=== PATIENT | male | born 1940 | race Caucasian/White ===

== ENCOUNTER 2017-01-13 01:17 | Inpatient (IN) ==
[~2017-01-13 01:17] MED LIST: Naloxone 0.4 MG/ML INJ IVP PRN
[2017-01-13] MEDS ORDERED: Ondansetron 4 MG/2 ML VIAL IVP PRN (02:16)
[2017-01-13] MEDS ORDERED: Nitroglycerin 0.4 MG TAB.SUBL SL PRN (02:16)
--- NOTE | 2017-01-13 02:31 | Internal Med History&Physical ---
Date of Encounter: 01/13/17 Time of Encounter: 01:00 Assessment and Plan (1) Hyperlipemia Current visit: Yes Status: Chronic Will increase to lipitor 80, check AM lipids. Qualifiers: Hyperlipidemia type: unspecified Qualified Code(s): E78.5 - Hyperlipidemia , unspecified Code(s): E78.5 - Hyperlipidemia, unspecified SNOMED Code(s): 14383680 (2) Acute kidney injury superimposed on CKD Current visit: Yes Status: Acute Baseline 1.3 Crea, will continue to monitor. Check UA. (3) Hypertension Current visit: Yes Status: Chronic Continue home BP meds Qualifiers: Hypertension type: essential hypertension Qualified Code(s): I10 - Essential (primary) hypertension (4) Elevated hemoglobin A1c Current visit: Yes Status: Acute will monitor FS, if needed may need Insulin coverage (5) NSTEMI (non-ST elevated myocardial infarction) Current visit: No Status: Acute Admit Telemetry Heparin gtt, per protocol, monitor APTT Aspirin, plavix, lipitor Trend trop Check ECHO Cardiology consult in AM. Internal Medicine - H&P: HPI Chief complaint: Chest pains Admitted From: Emergency Dept (At [place]) Plans for Post Hospital Care: Home History of present illness: Mr. Cash is a 76 year old male with past medical history of CAD ( no interventions), Hyperlipidemia, HTN, Renal calculi, ? CVA who was transferred from [place] ER for possible NSTEMI. 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 He then went home and pain continued and worsened at around 6PM. At that time pain was as much as 8/10, left side of his chest, radiated to left arm but no nausea, no vomiting. In the squad he was given Nitro SL which alleviated his pains. He was then taken to the ER at [place] where he was noted to have a trop 0.2, EKG was normal. He was started on a Heparin gtt and transferred here. At this time he feels fine, not having any chest pains, dyspnea or palpitations. He is High Risk given his age, history and possible NSTEMI. Expected LOS > 3 nights. Past Med Surg Social Fam HX - Past Medical History Medical history: CVA, hyperlipidemia, hypertension, myocardial infarction, renal disease, other Psychiatric history: no psych history - Past Surgical History Surgical History: appendectomy, knee replacement, other - Social History Smoking Status: Never smoker Smokeless Tobacco Status: No Alcohol use: none Drug use: none - Family History Father Hx Family Cardiac Disorders: No Hx Family Respiratory Disorders: No Hx Family Cancer: No Hx Family GI Disorders: No Hx Family Genitourinary Disorders: No Hx Family Endocrine Disorder: Yes (DM) Hx Family Musculoskeletal Disorders: No Hx Family Neuromuscular Disorders: No Hx Family Neurologic Disorders: Yes (Alzheimers) Hx Family HEENT Disorders: No Hx Family Autoimmune Disorders: No Hx Family Reproductive Disorders: No Hx Family Psychosocial Disorders: No Hx Family Medical Disorders: No Internal Medicine - H&P: Meds Aspirin Enteric Coated [Aspirin EC] 81 mg PO DAILY 08/14/15 [History] Clopidogrel [Plavix] 75 mg PO DAILY 08/14/15 [History] Losartan Potassium [Cozaar] 100 mg PO DAILY 08/14/15 [History] Metoprolol XL (24 HR) Succ [Toprol Xl] 25 mg PO DAILY 08/14/15 [History] Simvastatin [Zocor] 10 mg PO DAILY 08/14/15 [History] Cyanocobalamin (Vitamin B-12) [Vitamin B12] 1,000 mcg PO DAILY 08/18/15 [History ] 3 Allergy/AdvReac Type Severity Reaction Status Date / Time No Known Allergies Allergy Verified 01/12/17 20:57 All Systems PM: A 10-system review of systems was performed and is negative for pertinent findings except as documented above in the HPI. - Constitutional Vitals: Temp Pulse Resp BP Pulse Ox 97.6 F 51 12 167/99 94 01/13/17 00:05 01/13/17 00:05 01/13/17 00:05 01/13/17 00:05 01/13/17 00:05 General appearance: Present: A&O X 3, pleasant, no acute distress - Head Head exam: Present: atraumatic, normal inspection, normocephalic - Eye Eye exam: Present: EOMI, PERRL Pupils: Present: PERRL - ENT ENT exam: Present: mucous membranes moist, normal external ear exam, normal oropharynx - Neck Neck exam general surgery: Present: full ROM - Respiratory Respiratory exam: Present: CTAB - Cardiovascular Cardiovascular exam: Present: RRR, +S1, +S2 - GI/Abdominal GI/Abdominal exam: Present: normal bowel sounds, soft, no peritoneal signs - exam: Present: normal inspection - Extremities Exam Extremities exam: Present: full ROM, warm - Back Exam Back exam: Present: normal inspection - Neurological Exam Neurological exam: Present: alert, oriented X3 - Psychiatric Psychiatric exam: Present: normal affect, normal mood - Skin Skin exam: Present: normal color, warm Internal Med - H&P Results - Labs Labs: From [facility] Reviewed Trop 0.2 Crea 1.45 A1C 6.3 CBC: WNL - EKG Data -: EKG Interpreted by Myself EKG shows normal: sinus rhythm Rate: normal - EKG Data Prior EKG available for review: no - Diagnostic Studies Chest x-ray Status: image reviewed by me Additional comments: No acute process
[2017-01-13] MEDS: Heparin 25,000 UNIT/500 ML D5W 25,000 UNIT/500 ML MLS IVC SCH (02:57)
[2017-01-13 03:49] LABS: INR 1.1; Prothrombin Time 11.5 Seconds (9.4-12.1)
[2017-01-13 03:51] LABS: Activated Partial Thrombo Time 92.2 Seconds (26.0-36.0)
[2017-01-13 03:52] LABS: Basophils % 0.5 %; Eosinophils # 0.2 K/mcL (0.0-0.6); Eosinophils % 3.2 %; Hematocrit 43.1 % (37.5-50.1); Hemoglobin 13.9 g/dL (12.9-16.9); Immature Granulocytes % 0.3 % (0-4); Lymphocytes # 1.9 K/mcL (0.6-4.6); Lymphocytes % 33.2 %; Mean Corpuscular HGB Conc 32.3 g/dL (31.6-35.5); Mean Corpuscular Hemoglobin 28.4 pg (28.0-33.3); Mean Platelet Volume 10.1 fL (9.4-12.4); Monocytes # 0.5 K/mcL (0.0-1.3); Neutrophils # 3.2 K/mcL (1.6-8.9); Platelet Count 209 K/mcL (140-400); Red Cell Distribution Width 13.5 % (11.5-14.5); Segmented Neutrophils % 54.8 %
[2017-01-13 03:56] LABS: Hemoglobin A1C 6.1 %
[2017-01-13 04:44] LABS: Chol/HDL Ratio 4.6 (0-4.9)
[2017-01-13 04:45] LABS: Alanine Aminotransferase 12 Units/L (0-55); Albumin 3.6 g/dL (3.5-5.0); Albumin/Globulin Ratio 1.1 (1.1-2.2); Alkaline Phosphatase 72 Units/L (38-126); Aspartate Amino Transferase 16 Units/L (5-34); BUN/Creatinine Ratio 18 (6-26); Bilirubin,Total 0.5 mg/dL (0.2-1.2); Blood Urea Nitrogen 23 mg/dL (8-26); Calcium 9.1 mg/dL (8.6-10.8); Carbon Dioxide 23 mEq/L (19-29); Chloride 108 mEq/L (98-109); Globulin 3.2 g/dL (2.4-3.5); Glucose 109 mg/dL (70-99); Magnesium 2.2 mg/dL (1.6-2.6); Osmolality,Calculated 294 (280-300); Phosphorous 3.4 mg/dL (2.3-4.7); Potassium 4.2 mEq/L (3.5-4.5); Sodium 140 mEq/L (136-145); Total Protein 6.8 g/dL (6.0-8.3); eGFR For African Americans > 60 (> 60); eGFR For Non-African Americans 53 (> 60)
[2017-01-13 05:42] LABS: Thyroid Stimulating Hormone 1.018 mcIU/mL (0.350-4.840)
[2017-01-13] MEDS: Metoprolol XL (24 HR) Succ 25 MG TAB.ER.24H PO SCH (08:08)
[2017-01-13] MEDS: Cyanocobalamin (B-12) 1,000 MCG TABLET PO SCH (08:08)
[2017-01-13] MEDS: Aspirin Enteric Coated 81 MG Tablet PO SCH (08:08)
[2017-01-13] MEDS ORDERED: NON-FORMULARY MEDICATION 1 EACH EACH (Simvastatin [Zocor] 10 MG) PO SCH (09:00)
--- NOTE | 2017-01-13 10:35 | Cardiology Consult Note ---
<Waylon Blake - Last Filed: 01/13/17 11:02> Date of Encounter: 01/13/17 Time of Encounter: 10:30 Assessment and Plan (1) NSTEMI (non-ST elevated myocardial infarction) Current Visit: No Status: Acute Troponin 0.20, 0.25. EKG with no acute changes. Typical chest pain. Remote history of non-obstructive CAD on LHC. [facility] recommended for further eval. Check TTE tonight. TTE 06/18/13- EF 55%. Moderate DD. No significant valvular disease. Last stress test 2008 was negative. LHC R/B/A reviewed. Noted to have mildly elevated creatinine at baseline. IV fluid to reduce risk of DARIO. Discussed with patient and he would like to proceed. Continue asa, statin, and BB. (2) Hypertension Current Visit: Yes Status: Chronic B/p is acceptable. Qualifiers: Hypertension type: essential hypertension Qualified Code(s): I10 - Essential (primary) hypertension Discussion w patient/family: The assessment and plan as outlined above was discussed with the patient and/or family members who expressed understanding and agreement. All questions were answered. Thank you for involving us in the care of your patient. Please call with any questions. History of Present Illness Consult date: 01/13/17 Requesting physician: Jan Patterson Consult reason: NSTEMI Chief complaint: Chest pain History of present illness: Mr. Cash is a 76 year old male with a history of non-obstructive CAD, HTN, and CKD who presents with intermittent left sided chest pain. The discomfort started last saturday when he was shoveling tar to fill a potole. He reports it was a dull pressure and non-radiating. the pain improved with rest. Yesterday he was shoveling dirt when he developed recurrent left sided pressure that radiated to his arm. His pain improved with rest. That evening after dinner he had recurrent chest pain. He decided to go to the ER in [place]. Chest pain resolved with one NTG. He denies associated symptoms. Denies SOB, Palpitations, or diaphoresis. Denies nausea. No recent cardiac work-up. Underwent LHC remotely and patient reports 40% blockage at that time. Past Med Surg Social Fam HX - Past Medical History Medical history: hyperlipidemia, hypertension, myocardial infarction, renal disease, other Psychiatric history: no psych history - Past Surgical History Surgical History: appendectomy, knee replacement, other - Social History Smoking Status: Never smoker Smokeless Tobacco Status: No Alcohol use: none Drug use: none - Family History Father Hx Family Cardiac Disorders: No Hx Family Respiratory Disorders: No Hx Family Cancer: No Hx Family GI Disorders: No Hx Family Genitourinary Disorders: No Hx Family Endocrine Disorder: Yes (DM) Hx Family Musculoskeletal Disorders: No Hx Family Neuromuscular Disorders: No Hx Family Neurologic Disorders: Yes (Alzheimers) Hx Family HEENT Disorders: No Hx Family Autoimmune Disorders: No Hx Family Reproductive Disorders: No Hx Family Psychosocial Disorders: No Hx Family Medical Disorders: No Medications and Allergies Aspirin Enteric Coated [Aspirin EC] 81 mg PO DAILY 08/14/15 [History] Clopidogrel [Plavix] 75 mg PO DAILY 08/14/15 [History] Losartan Potassium [Cozaar] 100 mg PO DAILY 08/14/15 [History] Metoprolol XL (24 HR) Succ [Toprol Xl] 25 mg PO DAILY 08/14/15 [History] Simvastatin [Zocor] 10 mg PO DAILY 08/14/15 [History] Cyanocobalamin (Vitamin B-12) [Vitamin B12] 1,000 mcg PO DAILY 08/18/15 [History ] Allopurinol [Zyloprim 300 MG] 300 mg PO DAILY 01/13/17 [History] Potassium Citrate [Urocit-K] 10 meq PO BID 01/13/17 [History] 3 Allergy/AdvReac Type Severity Reaction Status Date / Time No Known Allergies Allergy Verified 01/12/17 20:57 All Systems Review: A 10-system review of systems was performed and is negative for pertinent findings except as documented above in the HPI. Physical Examination Vital Signs, Last 4 Hours Temp Pulse Resp BP Pulse Ox 01/13/17 07:27 97.4 F L 63 16 129/80 99 General: Conversant, No Apparent Distress HEENT: Atraumatic, Normocephaly, Mucus Membranes Moist Neck: No JVD, Normal carotid pulses Cardiac: Reg Rate and Rhythm, Normal S1 and S2, No Murmur Lungs: Normal Breath Sounds, No Wheeze, Rales, Rhonchi Neuro: Alert and responsive, No focal deficits noted Abdomen: Soft, Non-Tender Skin: No rashes noted on visualized skin Musculoskeletal: No Chest Wall Tenderness Extremities: No Clubbing, No Cyanosis, No Edema, Normal Pulses Results 01/13/17 03:28 01/13/17 03:28 Lab Results 01/13/17 01/13/17 01/13/17 03:28 03:28 03:28 WBC 5.9 Hgb 13.9 Hct 43.1 Plt Count 209 INR 1.1 APTT 92.2 H D Sodium Potassium Chloride Carbon Dioxide BUN Creatinine Glucose Calcium Magnesium Total Bilirubin AST ALT Alkaline Phosphatase Troponin I 0.25 H* TSH 01/13/17 01/13/17 01/13/17 03:28 03:28 09:34 WBC Hgb Hct Plt Count INR APTT 56.4 H Sodium 140 Potassium 4.2 Chloride 108 Carbon Dioxide 23 BUN 23 Creatinine 1.31 H Glucose 109 H Calcium 9.1 Magnesium 2.2 Total Bilirubin 0.5 AST 16 ALT 12 Alkaline Phosphatase 72 Troponin I TSH 1.018 01/13/17 09:34 WBC Hgb Hct Plt Count INR APTT Sodium Potassium Chloride Carbon Dioxide BUN Creatinine Glucose Calcium Magnesium Total Bilirubin AST ALT Alkaline Phosphatase Troponin I 0.20 H* TSH - Imaging and Cardiology Echo: report reviewed Consult Discharge Plan - Plan Referrals: Laith Fulton MD [Primary Care Provider] - <Sonya Corcoran - Last Filed: 01/13/17 15:28> Date of Encounter: 01/13/17 - Attending Attestation I have personally performed a face to face evaluation on this patient. I have reviewed and agree with the care plan. History and Exam by me shows: 76-year-old male presents to the [facility] from [place] with chest pain. Patient was found having elevated troponin 0.0 with a presentation of typical angina. Patient's EKG shows nonspecific changes last echocardiogram 2013 shows ejection fraction of 55%. Risks benefits and alternatives were discussed with the patient and he agrees to proceed with a left heart catheter. Currently chest pain-free on heparin with a peak troponin of 0.24 Assessment and Plan Discussion w patient/family: The assessment and plan as outlined above was discussed with the patient and/or family members who expressed understanding and agreement. All questions were answered. Thank you for involving us in the care of your patient. Please call with any questions. History of Present Illness History of present illness: Mr. Cash is a 76 year old male All Systems Review: A 10-system review of systems was performed and is negative for pertinent findings except as documented above in the HPI. Results 01/13/17 03:28 01/13/17 03:28 Lab Results 01/13/17 01/13/17 01/13/17 03:28 03:28 03:28 WBC 5.9 Hgb 13.9 Hct 43.1 Plt Count 209 INR 1.1 APTT 92.2 H D Sodium Potassium Chloride Carbon Dioxide BUN Creatinine Glucose Calcium Magnesium Total Bilirubin AST ALT Alkaline Phosphatase Troponin I 0.25 H* TSH 01/13/17 01/13/17 01/13/17 03:28 03:28 09:34 WBC Hgb Hct Plt Count INR APTT 56.4 H Sodium 140 Potassium 4.2 Chloride 108 Carbon Dioxide 23 BUN 23 Creatinine 1.31 H Glucose 109 H Calcium 9.1 Magnesium 2.2 Total Bilirubin 0.5 AST 16 ALT 12 Alkaline Phosphatase 72 Troponin I TSH 1.018 01/13/17 09:34 WBC Hgb Hct Plt Count INR APTT Sodium Potassium Chloride Carbon Dioxide BUN Creatinine Glucose Calcium Magnesium Total Bilirubin AST ALT Alkaline Phosphatase Troponin I 0.20 H* TSH
[2017-01-13] MEDS ORDERED: *HR* Heparin 5,000 UNIT/ML VIAL IVP PRN ×2 (17:28)
[2017-01-13 18:12] LABS: Activated Partial Thrombo Time 130.8 Seconds (26.0-36.0)
[2017-01-13 18:21] LABS: Heparin anti-factor XA UFH 0.53 IU/mL (0.30-0.70)
--- NOTE | 2017-01-13 18:46 | Event Note ---
Date of Encounter: 01/13/17 Time of Encounter: 18:46 Pt admitted with acute NSTEMI. Pain free now. On heparin. Plan [facility] tomorrow.
[2017-01-14 01:08] LABS: Hematocrit 41.2 % (37.5-50.1); Hemoglobin 13.4 g/dL (12.9-16.9); Immature Platelets 3.2 % (1.1-6.1); Mean Corpuscular HGB Conc 32.5 g/dL (31.6-35.5); Mean Corpuscular Hemoglobin 28.6 pg (28.0-33.3); Mean Platelet Volume 10.2 fL (9.4-12.4); Red Blood Count 4.68 M/mcL (4.19-5.50); Red Cell Distribution Width 13.6 % (11.5-14.5)
[2017-01-14 01:20] LABS: Calcium 9.2 mg/dL (8.6-10.8); Magnesium 2.1 mg/dL (1.6-2.6); Potassium 4.2 mEq/L (3.5-4.5)
[2017-01-14] MEDS: Heparin 25,000 UNIT/500 ML D5W 25,000 UNIT/500 ML MLS IVC SCH (01:48)
[2017-01-14] MEDS: Aspirin Enteric Coated 81 MG Tablet PO SCH (07:43)
[2017-01-14] MEDS: Cyanocobalamin (B-12) 1,000 MCG TABLET PO SCH (07:44)
[2017-01-14] MEDS: Metoprolol XL (24 HR) Succ 25 MG TAB.ER.24H PO SCH (07:44)
[2017-01-14] MEDS ORDERED: Heparin 1,000 UNITS/500 mL NS 500 ML ONE (09:26)
[2017-01-14] MEDS ORDERED: 0.9 % Sodium Chloride 1,000 ML ONE (09:26)
[2017-01-14] MEDS ORDERED: Nitroglycerin 1,000 MCG/10 ML VIAL IV ONE (09:27)
[2017-01-14] MEDS ORDERED: *HR* Heparin 10,000 UNIT/10 ML VIAL ONE (09:27)
[2017-01-14] MEDS ORDERED: *HR* Midazolam HCl 2 MG/2 ML VIAL ONE (09:38)
--- NOTE | 2017-01-14 09:47 | Pre-Sedation Evaluation ---
Pre-sedation evaluation - Pre-sedation checklist Date of procedure: 01/14/17 Recent Vitals: Last Vital Signs Temp 98.2 F 01/14/17 07:25 Pulse 54 01/14/17 07:25 Resp 17 01/14/17 07:25 BP 129/80 01/14/17 07:25 Pulse Ox 99 01/14/17 07:25 H&P (including ROS) documented in medical record: Yes Previous reaction to sedatives/anesthetics: No Dietary Status: NPO after Midnight Airway Assessment: Patient can open mouth completely, TMJ function normal Dentition: dentures removed Possible difficult airway: No ASA Classification *see protocol: CLASS III-Severe systemic disease Plan of Care: Pt appropriate candidate for procedure/moderate/conscious sedation , Risks/benefits of procedure/sedation discussed w/ patient/family, If not NPO; Risk of intake outweiged by necessity to perform procedure
--- NOTE | 2017-01-14 10:28 | Event Note ---
Date of Encounter: 01/14/17 Time of Encounter: 10:25 - Cardiology Event Note LHC: Normal LV, EF 60% hyperdominate Cx 99% prox LAD to 0% post PCI with 3.0 x 12 Synergy MCKAY.
--- NOTE | 2017-01-14 10:40 | Invasive Diagnostic Lab Proc ---
Name: Fermin Cash Date of Study: 01/14/2017 Date: 1940 Ht: 72.0in Medical Record#: [id number] Age: 76 Wt: 209.44lb Gender: Male BSA: 2.17 Order #: [id number] BMI: 28.37 Physicians Procedure Physician: Shaan Alva DO Referring MD: Referring MD: Staff Name Position Time In Mike Sinhai RT Scrub 09:35 AM Catie Luna RT (R) Monitor 09:36 AM Deepa Tolbert RN Mechanical Test Engineer 09:36 AM Indications Indication Non-Stemi Procedures Performed Procedure L HRT ARTERY/VENTRICLE ANGIO PRQ CARD MCKAY STENT W/ANGIO 1 VSL Pre-Procedure Checklist Informed consent is complete signed and on chart. H&P is on chart. ID band is on and ID verified with patient. Patient NPO for procedure The procedure was described for the patient and questions were answered. Blood Pressure: 174/91 ECG is on chart. Rhythm: Sinus Bradycardia Plan of Care Patient will tolerate the procedure without complications. Adequate level of comfort will be maintained. Hemodynamics will remain stable Patient will recover from procedure without complications. Respiratory function will be maintained. Cardiac rhythm will remain stable. Patient temperature will be maintained. Patient and/or family have verbalized understanding of the procedure. Patient Education Chief Complaint/Reason for Test: Cardiac Cath Developmental Category: Geriatric (65+ years) Developmentally Appropriate for Age: Yes Learning Barriers: None Education Needs: Procedure Education Method: Verbal Information Taught: Cardiac Cath Educational Evaluation: Able to repeat information Intravenous Access Time IV Size Location DC'd Fluid/Drip Rate Units RN 09:35 AM 18g 1 03/21" Patent On Arrival Rt Antecubital Allergies No Known Allergies NKA Vital Signs Time BP (mmHg) HR (bpm) O2 Sat. RR (bpm) LOC 09:37 AM / % 5 = Fully awake and oriented or at pre-proc level 09:37 AM / % 4 = Oriented but drowsy 09:52 AM / % 4 = Oriented but drowsy 10:07 AM / % 5 = Fully awake and oriented or at pre-proc level 09:36 AM 174 / 91 51 100 % 09:41 AM 138 / 85 55 97 % 14 09:46 AM 123 / 80 49 91 % 13 09:51 AM 133 / 82 49 98 % 16 09:56 AM 128 / 81 50 100 % 12 10:01 AM 133 / 88 51 99 % 13 10:06 AM 153 / 86 48 97 % 26 10:11 AM 158 / 84 51 100 % 15 10:16 AM 152 / 87 47 100 % 21 10:22 AM 165 / 102 % Procedural Medications Time Medication Dose Units Method Given By 09:36 AM Oxygen 2 L/min nasal cannula Georgette Martinez RN 09:38 AM Versed 2 mg Intravenous Deepa Tolbert RN 09:44 AM Oxygen 6 L/min nasal cannula Deepa Tolbert RN 09:46 AM Oxygen 10 L/min Oxy Mask Deepa Tolbert RN 09:55 AM Lidocaine 2% 10 ml Subcutaneous Shaan Alva DO 10:05 AM Angiomax 0.75mg/kg bolus: 14 ml Intravenous Deepa Tolbert RN 10:06 AM Angiomax 1.75mg/kg/hr: 33 ml Intravenous Deepa Tolbert RN ASA Classification: CLASS II- Mild systemic disease (i.e. well-controlled diabetes, hypertension, asthma, cigarette smoking) Karla Score Preprocedure Postprocedure Activity 2- Moves 4 extremities sustained head lift Activity 2- Moves 4 extremities sustained head lift Circulation 2- SBP +/= 20 points of pre-anesthetic level Circulation 2- SBP +/= 20 points of pre-anesthetic level Consciousness 2- Awake and alert oriented x 3 Consciousness 2- Awake and alert oriented x 3 O2 Saturation 2- Able to maintain O2 satruation of 92% on room air O2 Saturation 2- Able to maintain O2 satruation of 92% on room air Respiratory 2- Able to deep breathe and cough well Respiratory 2- Able to deep breathe and cough well Total Score 10 Total Score 10 Contrast Agent: Isovue Diagnostic Contrast: 75 ml Total Contrast: 75 ml Fluoro Dose: 869 mGy Procedure Log Time Note Enter By 09:28 AM Case Start 09:28 AM CathStat 09:35 AM Pt arrived to clinical laboratory technician 2 at 09:35 [facility] 09:35 AM Vitals capture started with the following parameters, Patient=Adult, Interval=5 min, Initial Upyepybi=072 mmHg, Deflation Rate=5 mmHg, Cuff placed on Right Arm 09:36 AM Samina Sinha RT Position: Scrub Time in: 09:35 [email or web address] 09:36 AM Catie Luna RT (R) Position: Monitor Time in: 09:36 :36 AM Deepa Tolbert RN Position: Mechanical Test Engineer Time in: :36 ell:36 AM Patient charges- Angio tray pack, Navilyst 3mm J, Pulse Oximetry and ACIST tubing and transducer :36 AM IV Supplies used: J loop Angio Cath. 09:36 AM Case Delayed NO 09:36 AM Hair removed from procedure site in procedure lab using clippers. Bilateral groin prepped with Chloraprep by Mani Rico (R), safety strap applied then patient was draped. Skin intact. :36 AM Physician arrived 09:36 [email or web address] AM HR=51 bpm, PVSO=536/91 mmhg, UtU1=660.0 %, Comment=Sinus Mahamed 09:36 AM Meet and greet completed :36 AM Sign in performed according to hospital policy. :36 AM Procedure start 09:36 :37 AM Time: 09:36 Oxygen on at 2 L/min per nasal cannula by Georgette Martinez RN :37 AM Time: 09:37 Patient comfortable and pain free: Yes :37 AM Time: 09:37LOC: 5 = Fully awake and oriented or at pre-proc level :37 AM Clinical Presentation: Unstable angina 09:39 AM Time: 09:38 Versed 2 mg Intravenous Given by Deepa Tolbert RN 09:41 AM HR=55 bpm, NZEV=910/85 mmhg, SpO2=97.0 %, Resp=14 B/min, Comment=Sinus Mahamed 09:44 AM Time: 09:44 Oxygen on at 6 L/min per nasal cannula by Deepa Tolbert RN gretchen 09:45 AM Pressure channel 2 zeroed. 09:46 AM HR=49 bpm, UOXF=545/80 mmhg, SpO2=91.0 %, Resp=13 B/min, Comment=Sinus Mahamed 09:46 AM Time: 09:46 Oxygen on at 10 L/min per Oxy Mask by Deepa Tolbert RN 09:49 AM Pressure channel 2 zeroed. 09:51 AM HR=49 bpm, EXQY=935/82 mmhg, SpO2=98.0 %, Resp=16 B/min, Comment=Sinus Mahamed 09:51 AM ASA Class CLASS II- Mild systemic disease (i.e. well-controlled diabetes, hypertension, asthma, cigarette smoking) :52 AM Time: 09:37LOC: 4 = Oriented but drowsy dsp:52 AM Time: 09:37 Patient comfortable and pain free: Yes :55 AM Time out performed according to hospital policy :55 AM Time: :55 10 ml Lidocaine 2% to right groin Subcutaneous Given by Shaan Alva DO :56 AM HR=50 bpm, HRNP=939/81 mmhg, YgS1=540.0 %, Resp=12 B/min, Comment=Sinus Mahamed 09:56 AM Micro-Introducer Kit utilized for sheath placement :58 AM Access obtained by percutaneous puncture. 6Fr 10cm Terumo Claridge sheath placed in right Femoral artery. [id number] 09:58 AM 6Fr FR 4 catheter inserted over the wire [facility] :58 AM 0.035 145cm Navilyst 3mmJ wire [id number] :58 AM Catheter selectively placed in left ventricle :59 AM Bolus angiogram of left Ventricle complete: ml/sec for a total of 12 mls :59 AM Recorded Pressure: LV, HR=54, Condition=Condition 1 (Left Ventricle) LV 114/19/30 09:59 AM Recorded Pressure: LV, Ao, HR=57, Condition=Condition 1 (Left Ventricle) LV 150/53/22, (Aorta) Ao 141/73/100 10:00 AM Recorded Pressure: Ao, HR=51, Condition=Condition 1 (Aorta) Ao 129/77/97 10:00 AM RCA angiography performed in multiple views. ell 10:00 AM Catheter removed 10:00 AM 5Fr FL 4 catheter inserted over the wire C 10:01 AM HR=51 bpm, KZMW=472/88 mmhg, SpO2=99.0 %, Resp=13 B/min, Comment=Sinus Mahamed 10:01 AM Recorded Pressure: Ao, HR=50, Condition=Condition 1 (Aorta) Ao 139/73/98 10:02 AM Catheter removed 10:02 AM 5Fr FL5 catheter inserted over the wire [id number] dspellman 10:03 AM LCA angiography performed in multiple views. [email or web address] 10:03 AM Recorded Pressure: Ao, HR=51, Condition=Condition 1 (Aorta) Ao 151/78/106 10:04 AM Catheter removed dspellman 10:04 AM Coronary Dominance: Left dspellman 10:04 AM Lesion found in Proximal LAD. Pre Stenosis: 99 Pre JEN Flow: 3: Complete and Brisk Flow/Perfusion dspellman 10:04 AM Proximal Left Anterior Descending Coronary Artery with 99% stenosis. If graft is supplying this territory, 0 % stenosis. dspellman 10:05 AM PCI Status Urgent dspellman 10:05 AM PCI Indication: PCI for high risk Non-STEMI or unstable angina dspellman 10:05 AM PCI lesion in Proximal LAD. dspellman 10:05 AM 6Fr JL4 Runway guide catheter was used to cannulate the PCI vessel unsuccessfully. reused? No dspellman 10:06 AM Time: 10:05 Angiomax 0.75mg/kg bolus: 14 ml Intravenous Given by Deepa Tolbert RN Wilcox pump dspellman 10:06 AM Time: 10:06 Angiomax 1.75mg/kg/hr: 33 ml Intravenous Given by Deepa Tolbert RN Wilcox pump dspellman 10:06 AM HR=48 bpm, WWYW=655/86 mmhg, SpO2=97.0 %, Resp=26 B/min, Comment=Sinus Mahamed 10:06 AM Guide catheter removed intact. dspellman 10:07 AM 6Fr XB LAD 3.5 Cordis guide catheter was used to cannulate the PCI vessel unsuccessfully. reused? No dspellman 10:07 AM Time: 09:52 Patient comfortable and pain free: Yes dspellman 10:07 AM Time: 09:52LOC: 4 = Oriented but drowsy dspellman 10:08 AM Guide catheter removed intact. dspellman 10:09 AM 6Fr JL5 Runway guide catheter was used to cannulate the PCI vessel successfully. reused? No dspellman 10:10 AM Inflation device was opened. dspellman 10:11 AM .014 ChoICE PT Extra Support 300cm guide wire across target lesion- successful. reused? No dspellman 10:11 AM HR=51 bpm, SJSA=940/84 mmhg, YsI7=034.0 %, Resp=15 B/min, Comment=Sinus Mahamed 10:11 AM 3.0mm x 12mm Synergy drug-eluting stent across target lesion- successful Lot #[id number] dspellman 10:13 AM Recorded Pressure: Ao, HR=48, Condition=Condition 1 (Aorta) Ao 167/89/118 10:16 AM HR=47 bpm, KFKK=094/87 mmhg, SzM2=611 %, Resp=21 B/min 10:16 AM Stent deployed @ 16 clarice for 18 seconds dspellman 10:17 AM Stent delivery system removed intact. dspellman 10:18 AM Guide wire removed intact. dspellman 10:18 AM Guide catheter removed intact. dspellman 10:18 AM Procedure completed at 10:18 dspellman 10:18 AM Arterial sheath pulled, Angio-seal closure device used and was Successful S/N. dspellman 10:20 AM Sign out completed: Radiation Dose 869.38 mGy Fluoro Time: 7.1 Isovue 370 - 200ml contrast 75 ml given by Shaan Alva DO. Complications: NoneCardiac Rehab Consult needed: NoConfirmed administered medications: Yes dspellman 10:20 AM Isovue 370 - 200ml,1 Bottle(s) used. dspellman 10:20 AM Post ECG Sinus Bradycardia dspellman 10:20 AM Post Blood Pressure 152/87 dspellman 10:22 AM DCWY=223/102 mmhg, Comment=Sinus Mahamed 10:22 AM 10:22 Post Pulses Bilateral DP & PT 2+ dspellman 10:22 AM Information taught Cardiac Cath, PCI, and Angioseal dspellman 10:22 AM Time: 10:07LOC: 5 = Fully awake and oriented or at pre-proc level dspellman 10:23 AM Note: No Plavix given after procedure per Dr Alva dspell 10:24 AM Education needs Procedure, Plan of Care, and Responsibilities of Patient in Care dspellman 10:25 AM Learning barriers :None dspellman 10:25 AM Education Methods Verbal dspellman 10:25 AM Education evaluation Able to repeat information dspellman 10:25 AM Site status No bleeding/hematoma - Rt Groin as reported by Samian Sinha RT at 10:25 dspellman 10:25 AM Opsite applied dspellman 10:25 AM Patient out of room: 10:25 dspellman 10:26 AM Complications: None dspellman 10:28 AM Report given to Zenobia PALMER Pt taken to 3B Room #22. 10:26 [email or web address] 10:29 AM Family placed in consult room. [email or web address] Complications Complication None None Hemodynamics Pressures Site Systolic/A Wave Diastolic/V Wave Mean LV 114 19 30 LV 150 53 22 AO 141 73 100 AO 129 77 97 AO 139 73 98 AO 151 78 106 AO 167 89 118 Post Procedure Information Blood Pressure: 152/87 mmHg Rhythm: Sinus Bradycardia Post procedural instructions were given Closure Device Time Device Success/Fail 01/14/2017 10:29:00 AM Angio-Seal VIP Successful Site Checks Time Location Status Staff Sheath In? Note 10:25 AM Rt Groin No bleeding/hematoma Samina Sinha RT Pulses Time Site Pre-Procedure Post-Procedure Note Bilateral DP & PT 2+ Bilateral radial 2+ 10:22:00 AM Bilateral DP & PT 2+ Updated by Catie Luna RT (R) on 01/14/2017 10:32:23 AM Catie Luna RT electronically signed on 01/14/2017 10:33:15 AM with status of Final
--- NOTE | 2017-01-14 10:41 | Internal Med Progress Note ---
Date of Encounter: 01/14/17 Time of Encounter: 10:40 - Assessment and plan (1) NSTEMI (non-ST elevated myocardial infarction) Current Visit: Yes Status: Acute Assessment and plan: Pt is s/p cath today. He had stent to LAD. Feels OK now. Anticipate d/c tomorrow. (2) Hypertension Current Visit: Yes Status: Chronic Assessment and plan: Controlled. Continue home meds. Qualifiers: Hypertension type: essential hypertension Qualified Code(s): I10 - Essential (primary) hypertension (3) Hyperlipemia Current Visit: Yes Status: Chronic Assessment and plan: Continue home meds. Qualifiers: Hyperlipidemia type: mixed hyperlipidemia Qualified Code(s): E78.2 - Mixed hyperlipidemia (4) Coronary artery disease Current Visit: Yes Status: Chronic Assessment and plan: s/p stent today. Qualifiers: Coronary Disease-Associated Artery/Lesion type: [place] artery [place] vs. transplanted heart: [place] heart Associated angina: without angina Qualified Code(s): I25.10 - Atherosclerotic heart disease of [place] coronary artery without angina pectoris - Subjective Interval history: Mr. Cash is currently admitted for acute NSTEMI. He is s/p stent placement. He remains moderate to high risk due to potential for worsening cardiac status. Mr Cash feels OK at this time. He just returned from cath. No CP or SOB. No GI issues. - Constitutional Vitals: Temp Pulse Resp BP Pulse Ox 98.2 F 54 17 129/80 99 01/14/17 07:25 01/14/17 07:25 01/14/17 07:25 01/14/17 07:25 01/14/17 07:25 General appearance: Present: A&O X 3, pleasant - Head Head exam: Present: normocephalic - Eye Eye exam: Present: conjuntiva pink - ENT ENT exam: Present: mucous membranes moist - Respiratory Respiratory exam: Present: CTAB. Absent: rhonchi, wheezes - Cardiovascular Cardiovascular exam: Present: RRR. Absent: tachycardia - GI/Abdominal GI/Abdominal exam: Present: soft. Absent: tenderness - Extremities Exam Extremities exam: Present: warm. Absent: tenderness - Neurological Exam Neurological exam: Present: alert, oriented X3, no focal deficits Internal Medicine: Result - Labs CBC & Chem 7: 01/14/17 00:42 01/14/17 00:42 Labs: Short CBC 01/14/17 Range/Units 00:42 WBC 6.1 (4.3-11.1) K/mcL Hgb 13.4 (12.9-16.9) g/dL Hct 41.2 (37.5-50.1) % Plt Count 211 (140-400) K/mcL BMP 01/14/17 00:42 Sodium 140 Potassium 4.2 Chloride 108 Carbon Dioxide 25 BUN 26 Creatinine 1.45 H Glucose 117 H Calcium 9.2 - ABG Interpretation ABG results: PT/INR, D-dimer PT 11.5 Seconds (9.4-12.1) 01/13/17 03:28 - Impressions Impressions Echocardiogram 01/13/17 01:21 Impressions: LVEF 60-65%. Mild left ventricular diastolic dysfunction. Normal right ventricular structure and function. Unable to estimate RVSP due to lack of TR jet. There is a 0.5cm X 0.5cm echogenic mass on the downstream side of the anterior mitral leaflet. No regurge noted hence less likely Vegetation however possible MAC Vs Papillary fibroelastoma. JUAN superior imaging modality for better visualization. Please correlate clinically Left Ventricular Wall Motion: Rest Echo Findings All wall segments showed normal motion. Findings: Study Quality * Technically adequate exam. ECG Findings * Sinus bradycardia. Left Ventricle * LVEF 60-65%. * Mild left ventricular diastolic dysfunction. Right Ventricle * Normal right ventricular structure and function. Left Atrium * Normal left atrial size. Right Atrium * Normal right atrial size. Interatrial Septum * Interatrial septum not well evaluated. Aortic Valve * Trileaflet aortic valve with normal function. Mitral Valve * No mitral regurgitation. * No mitral stenosis. * 0.5cmX0.5cm echogenic mass on the downstream side of the anterior mitral leaflet. No regurge noted hence less likely Vegetation however possible MAC Vs Papillary fibroelastoma. JUAN superior imaging modality for better visualization. Please correlate clinically Tricuspid Valve * Unable to estimate RVSP due to lack of TR jet. Pulmonic Valve * Pulmonic valve not well visualized. Aorta * Normally sized aortic root. Pericardium * The pericardium appears normal. IVC * The IVC is not well evaluated. Consult Discharge Plan - Plan Referrals: Laith Fulton MD [Primary Care Provider] -
[2017-01-14] MEDS: 0.9 % Sodium Chloride 1,000 ML IVC SCH ×2 (10:45→22:39)
[2017-01-14] MEDS ORDERED: *HR* Bivalirudin 250 MG VIAL IVC ONE (12:27)
[2017-01-15 04:36] LABS: Hematocrit 42.2 % (37.5-50.1); Hemoglobin 13.7 g/dL (12.9-16.9); Mean Corpuscular HGB Conc 32.5 g/dL (31.6-35.5); Mean Corpuscular Hemoglobin 28.5 pg (28.0-33.3); Mean Corpuscular Volume 87.7 fL (83.0-100.0); Mean Platelet Volume 10.4 fL (9.4-12.4); Platelet Count 211 K/mcL (140-400); Red Blood Count 4.81 M/mcL (4.19-5.50); Red Cell Distribution Width 13.6 % (11.5-14.5)
[2017-01-15 05:14] LABS: BUN/Creatinine Ratio 15 (6-26); Blood Urea Nitrogen 18 mg/dL (8-26); Carbon Dioxide 22 mEq/L (19-29); Chloride 109 mEq/L (98-109); Glucose 96 mg/dL (70-99); Magnesium 2.1 mg/dL (1.6-2.6); Osmolality,Calculated 294 (280-300); Potassium 4.1 mEq/L (3.5-4.5); eGFR For African Americans > 60 (> 60); eGFR For Non-African Americans 57 (> 60)
[2017-01-15 05:15] LABS: Sodium 141 mEq/L (136-145)
[2017-01-15] MEDS: Aspirin Enteric Coated 81 MG Tablet PO SCH (07:27)
[2017-01-15] MEDS: Cyanocobalamin (B-12) 1,000 MCG TABLET PO SCH (07:27)
[2017-01-15] MEDS: Metoprolol XL (24 HR) Succ 25 MG TAB.ER.24H PO SCH (07:28)
--- NOTE | 2017-01-15 10:31 | Cardiology Progress Note ---
Date of Encounter: 01/15/17 Time of Encounter: 08:30 Assessment and Plan (1) NSTEMI (non-ST elevated myocardial infarction) Current Visit: Yes Status: Acute Troponin 0.20, 0.25. EKG with no acute changes. Typical chest pain. Remote history of non-obstructive CAD on [facility]. [facility] completed yesterday. Normal LV, EF 60% hyperdominate Cx. 99% prox LAD s/p PCI with MCKAY. TTE- LVEF 60-65%. Mild left ventricular diastolic dysfunction. Normal right ventricular structure and function. Unable to estimate RVSP due to lack of TR jet. There is a 0.5cm X 0.5cm echogenic mass on the downstream side of the anterior mitral leaflet. No regurge noted hence less likely Vegetation however possible MAC Vs Papillary fibroelastoma. Clinical correlation. -Dr. Salgado will review TTE and further recommendation to follow. -Patient is afebrile, WBC normal, and no stigmata of IE seen. Importance of DAPT with asa and plavix for minimum of one year uninterrupted reviewed with patient and family. They voiced understanding. Healthy heart diet and exercise reviewed. Cardiac rehab discussed. Continue statin and bb therapy. No lifting over 10 lbs for one week. No driving for a week. No tub baths for one week. He can take showers. [facility] will coordinate out-pt f/u in 1 week. Possible d/c home later today after further review of TTE. (2) Hypertension Current Visit: Yes Status: Chronic B/p is acceptable. Qualifiers: Hypertension type: essential hypertension Qualified Code(s): I10 - Essential (primary) hypertension Discussion w patient/family: The assessment and plan as outlined above was discussed with the patient and/or family members who expressed understanding and agreement. All questions were answered. Thank you for involving us in the care of your patient. Please call with any questions. Subjective Principal diagnosis: Chest pain Interval history: Mr. Cash reports he is doing well. Denies chest pain. Denies problems in his right groin. Objective Vital Signs, Last 4 Hours Temp Pulse Resp BP Pulse Ox 01/15/17 07:26 97.8 F 64 18 126/77 100 General: Conversant, No Apparent Distress HEENT: Atraumatic, Normocephaly, Mucus Membranes Moist Neck: No JVD, Normal carotid pulses Cardiac: Reg Rate and Rhythm, Normal S1 and S2, No Murmur Lungs: Normal Breath Sounds, No Wheeze, Rales, Rhonchi Neuro: Alert and responsive, No focal deficits noted Abdomen: Soft, Non-Tender Skin: No rashes noted on visualized skin Musculoskeletal: No Chest Wall Tenderness Extremities: No Clubbing, No Cyanosis, No Edema, Normal Pulses, Other (Right groin soft without hematoma.) Results 01/15/17 03:10 01/15/17 03:10 Lab Results 01/15/17 01/15/17 01/15/17 03:10 03:10 07:49 WBC 6.3 Hgb 13.7 Hct 42.2 Plt Count 211 APTT 32.0 D Sodium 141 Potassium 4.1 Chloride 109 Carbon Dioxide 22 BUN 18 Creatinine 1.24 Glucose 96 Calcium 9.0 Magnesium 2.1 - Imaging and Cardiology Echo: report reviewed Cardiac cath: report reviewed - EKG Interpretation EKG results cardiology: personally reviewed Consult Discharge Plan - Plan Referrals: Laith Fulton MD [Primary Care Provider] - 02/05/17 9:45 am
[2017-01-15 11:10] VITALS: BP 141/86
--- NOTE | 2017-01-15 13:59 | Discharge Summary ---
Date of Encounter: 01/15/17 Time of Encounter: 13:55 - Discharge Diagnosis (1) NSTEMI (non-ST elevated myocardial infarction) Priority: Primary Status: Acute (2) Coronary artery disease Priority: Primary Status: Chronic Qualifiers: Coronary Disease-Associated Artery/Lesion type: [place] artery [place] vs. transplanted heart: [place] heart Associated angina: without angina Qualified Code(s): I25.10 - Atherosclerotic heart disease of [place] coronary artery without angina pectoris (3) Hyperlipemia Priority: Secondary Status: Chronic Qualifiers: Hyperlipidemia type: mixed hyperlipidemia Qualified Code(s): E78.2 - Mixed hyperlipidemia (4) Acute kidney injury superimposed on CKD Priority: Primary Status: Acute (5) Hypertension Priority: Secondary Status: Chronic Qualifiers: Hypertension type: essential hypertension Qualified Code(s): I10 - Essential (primary) hypertension - Discharge Medications Prescriptions: Atorvastatin [Lipitor] 80 mg PO HS #30 tablet Home Medications: Aspirin Enteric Coated [Aspirin EC] 81 mg PO DAILY 08/14/15 [History] Clopidogrel [Plavix] 75 mg PO DAILY 08/14/15 [History] Losartan Potassium [Cozaar] 100 mg PO DAILY 08/14/15 [History] Metoprolol XL (24 HR) Succ [Toprol Xl] 25 mg PO DAILY 08/14/15 [History] Cyanocobalamin (Vitamin B-12) [Vitamin B12] 1,000 mcg PO DAILY 08/18/15 [History ] Allopurinol [Zyloprim 300 MG] 300 mg PO DAILY 01/13/17 [History] Atorvastatin [Lipitor] 80 mg PO HS #30 tablet 01/15/17 [Rx] Allergies/Adverse Reactions: 3 Allergy/AdvReac Type Severity Reaction Status Date / Time No Known Allergies Allergy Verified 01/12/17 20:57 Procedures/tests Complete & Pending: Procedures Performed prior 72 hours Category Date Time Status CL Cardiac Catheterization [CL] Routine Case Investigator 01/13/17 11:05 Completed ECG 12 lead ECG [ECG] Routine Y 01/14/17 07:00 Ordered EV echocardiogram Routine Y 01/13/17 01:21 Completed Date of admission: 01/13/17 01:17 Primary care physician: Laith Fulton, Consults: 01/13/17 01:21 Consult to Cardiology [CONS] Routine Comment: Consulting Provider: Cardiology Sherry Reason for Consult: NSTEMI Call Completed: No 01/13/17 02:16 Consult to Cardiac Rehabilitation-Phase1 [CONS] Routine Comment: Reason for Consult: AMI Call Completed: Yes Consult to Nurse Navigator [CONS] Routine Comment: - Patient Status Disposition: Home, Self-Care Condition: Good Overall status at discharge: patient is back to baseline - Discharge Instructions Instructions: Atorvastatin (By mouth), Left Heart Catheterization (DC) Follow Up With: Laith Fulton MD [Primary Care Provider] - 02/05/17 9:45 am Marquez Salgado DO [Partnered Physician] - Additional Instructions: Please f/u with cardiology in 1-2 weeks - Diet and Activity Diet: low salt diet Hospital course: Mr. Cash is a 76 year old male with a history of non-obstructive CAD, HTN, and CKD who presents with intermittent left sided chest pain. The discomfort started last saturday when he was shoveling tar to fill a potole. He reports it was a dull pressure and non-radiating. the pain improved with rest. Yesterday he was shoveling dirt when he developed recurrent left sided pressure that radiated to his arm. His pain improved with rest. That evening after dinner he had recurrent chest pain. He decided to go to the ER in [place]. Chest pain resolved with one NTG. He was admitted in the hospital and placed him on heparin gtt. Pt was seen by Director Nurses' [facility] who did LHC completed yesterday. Normal LV, EF 60% hyperdominate Cx. 99% prox LAD s/p PCI with MCKAY. He was continued on ASA and Plavix and recommend to continue Metoprolol and Losartan. His TTE showed LVEF 60-65%. Mild left ventricular diastolic dysfunction. Normal right ventricular structure and function. There is a 0.5cm X 0.5cm echogenic mass on the downstream side of the anterior mitral leaflet. Spoke to horticulture professor Dr. Salgado, who thinks its age related calcified lesion. Recommend out pt f/u with cardiology as an out pt. His Cr also improved and back to baseline. - Time Spent with Patient Total time spent providing and/or coordinating discharge services: - Constitutional Vitals: Temp Pulse Resp BP Pulse Ox 97.7 F 63 16 141/86 97 01/15/17 11:09 01/15/17 11:09 01/15/17 11:09 01/15/17 11:09 01/15/17 11:09 General appearance: Present: A&O X 3, pleasant - Head Head exam: Present: atraumatic, normal inspection - Neck Neck exam general surgery: Present: supple - Respiratory Respiratory exam: Present: CTAB. Absent: accessory muscle use, rales, rhonchi, wheezes - Cardiovascular Cardiovascular exam: Present: RRR, +S1, +S2. Absent: diastolic murmur, gallop, rubs, systolic murmur - GI/Abdominal GI/Abdominal exam: Present: soft. Absent: rebound, rigid, tenderness - Extremities Exam Extremities exam: Absent: calf tenderness, pedal edema, tenderness - Back Exam Back exam: Absent: CVA tenderness (L), CVA tenderness (R) - Neurological Exam Neurological exam: Present: alert, oriented X3
== END 2017-01-15 14:39 | disposition home or self-care (01) | DRG 247 ==
LOC: 3BNU → SUATTDRO 01:17
PROVIDERS: ADMIT Internal Medicine; ATTEND Family Medicine